=== PATIENT | female | born 1950 | race African-American/Black ===

== ENCOUNTER 2017-11-24 15:33 | Observation (INO) | payer MEDICARE ==
[~2017-11-24] VITALS: Ht 165.1 cm; Wt 74.8 kg
[~2017-11-24 15:33] MED LIST: AMLO10TA4 PO; ASPI-1159 PO; METF10002 PO
[2017-11-24] MEDS ORDERED: SODIUM CHLORIDE 0.9% 500 ML IV ONE (16:45)
[2017-11-24 17:23] LABS: BASOPHILS % 0.5 % (0.0-2.0); EOSINOPHILS % 0.3 % (0.0-5.0); HEMATOCRIT. 43.8 % (36.0-48.0); HEMOGLOBIN. 14.2 g/dL (12.0-16.0); LYMPHOCYTES % 3.9 % (20.0-50.0); MEAN CORPUSCULAR HEMOGLOBIN 28.9 pg (28.0-32.0); MEAN CORPUSCULAR VOLUME 88.8 fL (81.0-99.0); MEAN PLATELET VOLUME 10.4 fl (7.4-10.4); MONOCYTES % 8.1 % (2.0-8.0); NEUTROPHILS % 87.2 % (40.0-76.0); PLATELET 176 x1000/uL (130-400); RED BLOOD CELL COUNT 4.93 mill/uL (4.2-5.4); RED CELL DISTRIBUTION WIDTH 14.1 % (11.6-14.6)
[2017-11-24 17:32] LABS: INR 1.1; PROTHROMBIN TIME 11.2 sec (9.4-11.6)
[2017-11-24 17:33] LABS: CARBON DIOXIDE 25 mEq/L (21-32); CHLORIDE 101 mEq/L (98-107)
[2017-11-24 17:40] LABS: TROPONIN I < 0.02 ng/mL (0.00-0.04)
[2017-11-24] MEDS ORDERED: HYDRALAZINE 20MG/ML VIAL IV ONE (19:30)
[2017-11-24 20:03] LABS: CLARITY URINE CLEAR (CLEAR); COLOR URINE YELLOW (YELLOW); KETONES URINE 1+ (NEGATIVE); LEUKOCYTE ESTERASE URINE NEGATIVE (NEGATIVE); NITRITE URINE NEGATIVE (NEGATIVE); OCCULT BLOOD URINE NEGATIVE (NEGATIVE); PROTEIN URINE 2+ (NEGATIVE); SPECIFIC GRAVITY URINE 1.022 (1.005-1.030); UROBILINOGEN URINE 0.2 E.U./dL (0.2-1.0)
[2017-11-24 20:25] LABS: *AMPHETAMINES SCREEN URINE NEGATIVE (NEGATIVE); *BARBITURATES SCREEN URINE NEGATIVE (NEGATIVE); *BENZODIAZEPINES SCREEN URINE NEGATIVE (NEGATIVE); *COCAINE SCREEN URINE NEGATIVE (NEGATIVE); CANNABINOID URINE SCREEN NEGATIVE (NEGATIVE); METHADONE URINE SCREEN NEGATIVE (NEGATIVE); OPIATES URINE SCREEN NEGATIVE (NEGATIVE); PHENCYCLIDINE URINE SCREEN NEGATIVE (NEGATIVE)
[2017-11-24] MEDS ORDERED: AMLODIPINE 10MG TABLET PO ONE (20:30)
[2017-11-24] MEDS ORDERED: ACETAMINOPHEN 325MG TABLET PO ONE (20:30)
[2017-11-24 23:45] VITALS: BP 174/94
[2017-11-25] MEDS ORDERED: DEXTROSE 50% WATER 50ML SYRINGE IV PRN ×2 (00:45→11:15)
[2017-11-25] MEDS: CLONIDINE 0.1MG TABLET PO PRN ×2 (01:05→06:00)
[2017-11-25 04:00] VITALS: BP 179/99
[2017-11-25] MEDS: SODIUM CHL 0.45% + KCL 20MEQ/L 1,000 ML IV SCH ×2 (04:29→12:10)
[2017-11-25] MEDS: BLOOD SUGAR DIAGNOSTIC STRIP TEST SCH ×5 (06:00→21:44)
[2017-11-25 08:00] VITALS: BP 166/88
[2017-11-25] MEDS ORDERED: INSULIN LISPRO 100 UNITS/ML SUBCUT SCH (08:10)
[2017-11-25] MEDS: METFORMIN HCL 500MG TABLET PO SCH ×2 (08:32→17:33)
[2017-11-25] MEDS: AMLODIPINE 10MG TABLET PO SCH (08:32)
[2017-11-25] MEDS: LOSARTAN POTASSIUM 100 MG TABLET PO SCH (08:33)
[2017-11-25] MEDS: ASPIRIN 81MG EC TABLET PO SCH (08:33)
[2017-11-25] MEDS ORDERED: MEDICATION NOT ON FORMULARY EA (Metformin Hcl 1 TAB) PO SCH (09:00)
[2017-11-25 10:00] VITALS: BP 162/81
[2017-11-25] MEDS ORDERED: ACETAMINOPHEN 325MG TABLET PO PRN (11:15)
[2017-11-25 12:00] VITALS: BP 155/66
[2017-11-25] MEDS ORDERED: INFLUENZA VIRUS VACCINE 0.5ML SYR IM ONE (12:00)
[2017-11-25] MEDS: INSULIN LISPRO 100 UNITS/ML SUBCUT SCH ×3 (12:14→21:00)
[2017-11-25] MEDS ORDERED: INSULIN DETEMIR UD 100 UNITS/ML SYR SUBCUT SCH (14:00)
[2017-11-25 14:08] LABS: BASOPHILS % 0.8 % (0.0-2.0); HEMOGLOBIN. 13.5 g/dL (12.0-16.0); LYMPHOCYTES % 7.9 % (20.0-50.0); MEAN CORPUSCULAR HEMOGLOBIN 28.9 pg (28.0-32.0); MEAN CORPUSCULAR VOLUME 87.6 fL (81.0-99.0); MEAN PLATELET VOLUME 9.6 fl (7.4-10.4); MONOCYTES % 12.5 % (2.0-8.0); NEUTROPHILS % 78.8 % (40.0-76.0); PLATELET 228 x1000/uL (130-400); RED BLOOD CELL COUNT 4.68 mill/uL (4.2-5.4); RED CELL DISTRIBUTION WIDTH 14.3 % (11.6-14.6)
[2017-11-25 16:00] VITALS: BP 135/77
[2017-11-25] MEDS: OSELTAMIVIR 75MG CAPSULE PO SCH ×2 (17:33→21:43)
[2017-11-25] MEDS: INSULIN GLARGINE UD 100 UNITS/ML SYR SUBCUT SCH ×2 (17:34→21:44)
[2017-11-25] MEDS ORDERED: NAPHAZOLINE HCL/PHENIR MAL OPHTH SOLN 15ML BOTHEYE PRN (18:00)
[2017-11-25] MEDS ORDERED: IOHEXOL-300 100 ML BOTTLE ONE (18:43)
[2017-11-25 20:00] VITALS: BP 125/77
[2017-11-26 00:03] VITALS: BP 158/75
[2017-11-26] MEDS: SODIUM CHL 0.45% + KCL 20MEQ/L 1,000 ML IV SCH ×2 (02:06→08:49)
[2017-11-26 04:00] VITALS: BP 138/85
[2017-11-26 07:07] LABS: BASOPHILS % 0.8 % (0.0-2.0); EOSINOPHILS % 0.8 % (0.0-5.0); HEMATOCRIT. 41.4 % (36.0-48.0); HEMOGLOBIN. 13.7 g/dL (12.0-16.0); LYMPHOCYTES % 23.8 % (20.0-50.0); MEAN CORPUSCULAR HEMOGLOBIN 29.3 pg (28.0-32.0); MEAN CORPUSCULAR VOLUME 88.1 fL (81.0-99.0); MONOCYTES % 14.6 % (2.0-8.0); PLATELET 217 x1000/uL (130-400); RED BLOOD CELL COUNT 4.69 mill/uL (4.2-5.4); RED CELL DISTRIBUTION WIDTH 14.5 % (11.6-14.6)
[2017-11-26] MEDS: BLOOD SUGAR DIAGNOSTIC STRIP TEST SCH ×2 (07:40→11:35)
[2017-11-26] MEDS: INSULIN LISPRO 100 UNITS/ML SUBCUT SCH ×2 (07:47→11:35)
[2017-11-26 08:00] VITALS: BP 142/82
[2017-11-26] MEDS: METFORMIN HCL 500MG TABLET PO SCH (08:47)
[2017-11-26] MEDS: OSELTAMIVIR 75MG CAPSULE PO SCH (08:47)
[2017-11-26] MEDS: ASPIRIN 81MG EC TABLET PO SCH (08:47)
[2017-11-26] MEDS: AMLODIPINE 10MG TABLET PO SCH (08:47)
[2017-11-26] MEDS: LOSARTAN POTASSIUM 100 MG TABLET PO SCH (08:47)
[2017-11-26] MEDS: INSULIN GLARGINE UD 100 UNITS/ML SYR SUBCUT SCH (10:47)
[2017-11-26 12:00] VITALS: BP 134/77
[2017-11-26 14:21] VITALS: BP 139/81
[2017-11-28 06:12] LABS: BARBITURATE SCREEN Negative ug/mL (Cutoff:0.1); BENZODIAZEPINE SCREEN Negative ng/mL (Cutoff:20); OPIATES SCREEN Negative ng/mL (Cutoff:5); PHENCYCLIDINE SCREEN Negative ng/mL (Cutoff:8)
== END 2017-11-26 15:49 | disposition home or self-care (01) ==
LOC: ER 15:33 → INTOOBSV 19:57 → 7WST 19:57 → EDBEDREQ 20:47 → EDBEDREQSVC 20:47 → EDBEDREQTM 20:47 → ENRESERV 22:00
PROVIDERS: ADMIT Internal Medicine; ATTEND Internal Medicine
DX: R41.82 Altered mental status, unspecified (principal); G92 Toxic encephalopathy; K92.2 Gastrointestinal hemorrhage, unspecified; E11.649 Type 2 diabetes mellitus with hypoglycemia without coma; I27.20 Pulmonary hypertension, unspecified; J10.1 Influenza due to other identified influenza virus with other respiratory manifestations; R06.02 Shortness of breath; Z87.891 Personal history of nicotine dependence
CPT/HCPCS: 36415; 70450; 71045; 71260; 80048; 80053; 80061; 80305; 80307; 81001; 82962; 83036; 83880; 84443; 84484; 85025; 85610; 87040; 87086; 87804; 93005; 96361; 96372; 96374; 99285; G0378; J0360; J1815; J3480; J7040; Q9967

== ENCOUNTER 2022-04-18 08:56 | Emergency (ER) | payer MEDICARE ==
[~2022-04-18] VITALS: Ht 175.3 cm; Wt 77.0 kg
[~2022-04-18 08:56] MED LIST changes: -ASPI-1159 PO; +ASPI-1497 PO; +METF-416 PO; -METF10002 PO
[2022-04-18 08:58] VITALS: BP 210/101
[2022-04-18] MEDS ORDERED: ACETAMINOPHEN 325MG TABLET PO ONE (09:45)
[2022-04-18] MEDS ORDERED: AMLODIPINE 10MG TABLET PO ONE (09:45)
[2022-04-18 10:53] LABS: CLARITY URINE CLEAR (CLEAR); COLOR URINE YELLOW (YELLOW); KETONES URINE NEGATIVE (NEGATIVE); LEUKOCYTE ESTERASE URINE NEGATIVE (NEGATIVE); NITRITE URINE NEGATIVE (NEGATIVE); OCCULT BLOOD URINE NEGATIVE (NEGATIVE); PROTEIN URINE 2+ (NEGATIVE); SPECIFIC GRAVITY URINE 1.019 (1.005-1.030)
[2022-04-18] MEDS ORDERED: ACET-3163 MT (11:19)
== END 2022-04-18 11:39 | disposition home or self-care (01) ==
LOC: ER 08:56
DX: M54.30 Sciatica, unspecified side (principal); E78.00 Pure hypercholesterolemia, unspecified; I10 Essential (primary) hypertension; E11.9 Type 2 diabetes mellitus without complications
CPT/HCPCS: 72100; 81003; 82962; 99284

== ENCOUNTER 2022-08-07 10:38 | Emergency (ER) | payer MEDICARE ==
[~2022-08-07] VITALS: Ht 165.1 cm; Wt 73.0 kg
[~2022-08-07 10:38] MED LIST changes: +ACET-3163 MT
[2022-08-07] MEDS ORDERED: HYDROCODONE/ACETAMINOPHEN 5/325MG TABLET PO ONE (13:45)
[2022-08-07] MEDS ORDERED: HYDROCODONE/ACETAMINOPHEN 5/325MG TABLET PO NR (14:30)
[2022-08-07 14:39] VITALS: BP 210/115
[2022-08-07] MEDS ORDERED: HYDR-4001 MT (15:22)
[2022-08-07] MEDS ORDERED: ACET-2708 MT (15:26)
== END 2022-08-07 16:04 | disposition home or self-care (01) ==
LOC: ER 10:38
DX: M25.562 Pain in left knee (principal); M17.12 Unilateral primary osteoarthritis, left knee; E11.9 Type 2 diabetes mellitus without complications; E78.00 Pure hypercholesterolemia, unspecified; I10 Essential (primary) hypertension; Z79.82 Long term (current) use of aspirin
CPT/HCPCS: 73562; 99283

== ENCOUNTER 2022-09-24 09:31 | Emergency (ER) | payer MEDICARE ==
[~2022-09-24] VITALS: Ht 165.1 cm; Wt 73.0 kg
[~2022-09-24 09:31] MED LIST changes: +ACET-2708 MT; +HYDR-4001 MT
[2022-09-24 09:48] VITALS: BP 178/102
[2022-09-24] MEDS ORDERED: TOPUD MT (10:10)
[2022-09-24] MEDS ORDERED: ACETAMINOPHEN 325MG TABLET PO ONE (10:15)
== END 2022-09-24 10:15 | disposition home or self-care (01) ==
LOC: ER 09:31
DX: M17.12 Unilateral primary osteoarthritis, left knee (principal); E11.9 Type 2 diabetes mellitus without complications; E78.00 Pure hypercholesterolemia, unspecified; I10 Essential (primary) hypertension
CPT/HCPCS: 99282

== ENCOUNTER → 2025-04-28 | Outpatient (CLI) | payer MEDICARE, MEDICAID ==
[~2025-04-28] MED LIST changes: -ACET-2708 MT; -ACET-3163 MT; -AMLO10TA4 PO; +AMLO10TA80 PO; +ATOR40TA70 PO; +COR12 PO; +EMPA10TA PO; +GABA-529 PO; -HYDR-4001 MT; +HYDR25TA78 PO; +INSU100I24 SUBCUT; +ISOS10TA2 PO; +KEPP500 MT; +LEVO-65 MT; -METF-416 PO; +SACU1TAB PO
== END | disposition home or self-care (01) ==
LOC: CARD 09:07
DX: I08.3 Combined rheumatic disorders of mitral, aortic and tricuspid valves (principal); I27.20 Pulmonary hypertension, unspecified; R79.89 Other specified abnormal findings of blood chemistry
CPT/HCPCS: 93306